=== PATIENT | male | born 1950 | race Caucasian/White ===

== ENCOUNTER → 2023-05-21 | Outpatient (CLI) | payer MEDICARE, OTHER ==
[~2023-05-21] MED LIST: ASPI325T6 PO; ASPIRIN 81M81 MG/TA2 PO; CALCIUM1 CAP PO; EPA FISH OIL1000 MG PO; GLUCOSAMINE & C1 CA1 PO; MICARDIS HCT 121 TAB PO; MULTIPLE VITAMI1 T10 PO; NAPROSYN500 MG PO; NATURAL C500 MG PO; UNABLE; VITAMIN E 400 U4001 PO; ZOCOR 10MG10 MG PO
== END ==
LOC: MC.RAD 08:54
DX: N64.4 Mastodynia (principal)